=== PATIENT | male | born 1965 | race Caucasian/White ===

== ENCOUNTER 2018-01-22 06:30 | Emergency (ER) | payer SELFPAY ==
[~2018-01-22] VITALS: Ht 172.7 cm; Wt 70.5 kg
[~2018-01-22 06:30] MED LIST: DIAZ5 PO
[2018-01-22 06:42] VITALS: BP 130/60; PULSE 69; RESP 18; TEMP 98.3; O2SAT 98
[2018-01-22] MEDS ORDERED: BACT800T5 PO (07:03)
[2018-01-22] MEDS ORDERED: CEPH-460 PO (07:03)
[2018-01-22] MEDS ORDERED: IBUP1TAB7 PO (07:03)
--- NOTE | 2018-01-22 07:03 | PD ---
HPI Chief Complaint: Bite or Sting Time Seen by Provider: 06:49 Travel History International Travel<30 days: No Contact w/Intl Traveler<30days: No Traveled to known affect area: No History of Present Illness HPI 32-year-old male presents the ED for evaluation of approximate 2-week history of bug bite on the right thigh. Patient states that the wound initially started out as a small blister. He states he popped this blister and squeeze it multiple times in an effort to "get the pus out." He states that the area of redness has increased. He endorses 10/10 throbbing pain, no alleviating or exacerbating factors reported. He denies history of MRSA. Denies numbness, tingling, weakness, limitations range of motion of the extremity. Denies fever , chills, nausea, vomiting. Patient is unsure of his last tetanus immunization. No treatment attempted at home. PFSH Past Medical History Neurologic: Yes (C4-6 pinched nerve) Tetanus Vaccination: Unknown Past Surgical History Other Surgery: Yes (R Tib/fib Filippo) Social History Alcohol Use: No Tobacco Use: Yes (1PPD) Substance Use: Yes (MJ) Allergies-Medications (Allergen,Severity, Reaction): Coded Allergies: No Known Allergies (Unverified , 09/19/13) Reported Meds & Prescriptions Reported Meds & Active Scripts Active Ibuprofen 800 Mg Tab 800 Mg PO Q8H PRN Bactrim DS (Sulfamethoxazole-Trimethoprim) 800-160 Mg Tab 1 Tab PO BID Keflex (Cephalexin) 500 Mg Cap 500 Mg PO Q6H 7 Days Reported Valium (Diazepam) 5 Mg Tab 5 Mg PO TID PRN Review of Systems Except as stated in HPI: all other systems reviewed are Neg Physical Exam Narrative GENERAL: Well-nourished, well-developed white male no acute distress. SKIN: Focused skin assessment warm/dry. There is an warm, erythematous, indurated area in the left anterior thigh which measures about 4 cm in diameter. No fluctuance. No pointing. No drainage. No lymphangitis. HEAD: Atraumatic. Normocephalic. EYES: Pupils equal and round. No scleral icterus. No injection or drainage. ENT: No nasal bleeding or discharge. Mucous membranes pink and moist. NECK: Trachea midline. No JVD. CARDIOVASCULAR: Regular rate and rhythm. No murmur appreciated. RESPIRATORY: No accessory muscle use. Clear to auscultation. Breath sounds equal bilaterally. GASTROINTESTINAL: Abdomen soft, non-tender, nondistended. Hepatic and splenic margins not palpable. MUSCULOSKELETAL: No obvious deformities. No clubbing. No cyanosis. No edema. NEUROLOGICAL: Awake and alert. No obvious cranial nerve deficits. Motor grossly within normal limits. Normal speech. PSYCHIATRIC: Appropriate mood and affect; insight and judgment normal. Data Data Last Documented VS Vital Signs Date Time Temp Pulse Resp B/P (MAP) Pulse Ox O2 Delivery O2 Flow Rate FiO2 01/22/18 06:42 98.3 69 18 130/60 (83) 98 Orders Orders Tetanus/Diphtheria Tox Adult (Tetanus/Di (01/22/18 07:15) Ibuprofen (Motrin) (01/22/18 07:15) [facility] Medical Decision Making Medical Screen Exam Complete: Yes Emergency Medical Condition: Yes Differential Diagnosis Bug bite versus abscess versus cellulitis versus other Narrative Course 52-year-old male presents the ED for evaluation of "bug bite" times 2 weeks. Patient's afebrile on presentation. Physical exam consistent with cellulitis. Patient's tetanus immunization was updated. He is prescribed Bactrim, Keflex, ibuprofen. He is instructed to begin antibiotics today, take every dose as prescribed until the medication is gone, monitor for signs of worsening infection, return to the ED should these occur. He was given information for outpatient follow-up for the [facility]. He is stable and discharged home. Diagnosis Primary Impression: Cellulitis of right thigh Additional Impression: Immunization, tetanus-diphtheria Referrals: [facility] Additional Instructions: Rest, hydrate. Begin antibiotics today and take them as prescribed until every dose is gone. Take ibuprofen up to 3 times a day as needed for pain. Warm, moist compresses applied over the area in [id number] sessions a few times a day may also help to reduce your pain symptoms. If you take the prescriptions the [facility] one is free and the other is $4. Monitor for signs of worsening infection as discussed. Follow-up with the [facility] to establish primary care. Return to the ED for any urgent or emergent medical condition. Med/Other Pt SpecificInfo: Prescription(s) given Scripts Ibuprofen (Ibuprofen) 800 Mg Tab 800 MG PO Q8H Y for Pain/Inflammation, #12 TAB 0 Refills Prov: Gershen,Cyn B MD 01/22/18 Sulfamethoxazole-Trimethoprim (Bactrim DS) 800-160 Mg Tab 1 TAB PO BID for Infection, #14 TAB 0 Refills Prov: Cyn Harris MD 01/22/18 Cephalexin (Keflex) 500 Mg Cap 500 MG PO Q6H for Infection for 7 Days, #28 CAP 0 Refills Prov: Cyn Harris MD 01/22/18 Disposition: 01 DISCHARGE HOME Condition: Stable Maria Alejandra Cruz Jan 22, 2018 07:03
[2018-01-22] MEDS ORDERED: TETANUS/DIPHTHERIA TOXOID ADULT 0.5 ML VIAL IM ONE (07:15)
[2018-01-22] MEDS ORDERED: IBUPROFEN 800 MG TAB PO ONE (07:15)
== END 2018-01-22 08:08 | disposition home or self-care (01) ==
LOC: NEPD 06:30
DX: L03.115 Cellulitis of right lower limb (principal); F17.200 Nicotine dependence, unspecified, uncomplicated; Z23 Encounter for immunization
CPT/HCPCS: 90471; 90714